=== PATIENT | female | born 1995 | race Caucasian/White ===

== ENCOUNTER 2016-10-15 19:58 | Emergency (ER) | payer OTHER ==
[2016-10-15] MEDS ORDERED: IBUPROFEN 600 MG TABLET ONE (21:23)
[2016-10-15] MEDS ORDERED: DEXAMETHASONE 4 MG TABLET ONE ×2 (21:24→21:25)
[2016-10-15] MEDS ORDERED: ACETAMINOPHEN 325 MG TABLET ONE (21:24)
== END 2016-10-15 21:30 | disposition home or self-care (01) ==
LOC: ED 19:58
DX: J02.8 Acute pharyngitis due to other specified organisms (principal); B97.89 Other viral agents as the cause of diseases classified elsewhere
CPT/HCPCS: 87880; 99283 ×2; A9270 ×4